=== PATIENT | female | born 1940 | race Caucasian/White ===

== ENCOUNTER 2016-12-02 15:10 | Emergency (ER) | payer OTHER, MEDICARE ==
[~2016-12-02] VITALS: Ht 151.8 cm; Wt 56.7 kg
[~2016-12-02 15:10] MED LIST: MOTRIN 600 MG600 MG PO; PERCOCET 325 MG1 TA2 PO
--- NOTE | 2016-12-02 16:05 | ED UPPER/LOWER EXTREMITY COMPL ---
History of Present Illness General Chief Complaint: Upper Extremity Problem Stated Complaint: RIGHT ARM PAIN Source: patient Exam Limitations: no limitations Allergies Coded Allergies: tetanus and diphtheria toxoids (Intermediate, CELLULITIC RASH 12/02/16) Penicillins (Mild, RASH 12/02/16) latex (Mild, RASH 12/02/16) Uncoded Allergies: CATS DOGS FRAGRENCE GRIMM (LILACS) (12/02/16) Triage Note: TRIAGE: PT TO ER C/C PAIN FROM RT ARM INTO SHOULDER. WOKE UP WITH IT THIS MORNING AND HAS BEEN CONSTANT ALL DAY. STATES "I THINK IT'S FROM THE WEATHER GOING FROM WARM TO COLD." AND "IT'S BEEN NAGGING ME FOR A WHILE BUT NEVER LIKE THIS". DENIES ANY RECENT INJURY OR AGGRAVATING FACTOR. STAETS HAD XRAY IN THE PAST FOR SAME. TOOK EXTRA STRENGTH TYLENOL WITH ONLY SLIGHT RELIEF. WAS ADVISED TO STAY AWAY FROM [facility]VIL OR IBUPROFEN R/T SPINAL FUSION SX 09/08/2016. Triage Nurses Notes Reviewed? yes Onset: Abrupt Duration: week(s):, getting worse, intermittent Timing: recent history No Modifying Factors: none HPI: 76-year-old female comes into emergency room with right shoulder pain. Patient reports that the shoulder pain has been going on intermittently for many months now. Patient has had some limited range of motion. Patient reports that over last 2 days it has gotten significantly worse and she has severe decreased range of motion. Denies any vomiting. Denies any chest pain shortness of breath. Denies any previous surgeries in this right shoulder. Patient reports that she had a low back fusion done back in September 2016. Denies any complications or complaints from that surgery. Denies any other associated symptoms. (SERENITY BENAVIDES,DUKE) Vital Signs & Intake/Output Vital Signs & Intake/Output Vital Signs Date Time Temp Pulse Resp B/P Pulse O2 O2 Flow FiO2 Ox Delivery Rate 12/02 1845 100.4 84 20 122/80 12/02 1519 100.4 88 20 120/82 95 Room Air Reconcile Medications Albuterol Sulfate (Proair Hfa) 90 MCG HFA.AER.AD 2 PUF INH Q4-6 PRN PRN ASTHMA (Reported) Diazepam 5 MG TABLET 1 TAB PO TIDPRN ANXIETY (Reported) Gabapentin 100 MG CAPSULE 1 CAP PO TID DEPRESSION (Reported) Hydrocodone/Acetaminophen (Hydrocodon-Acetaminophen 5-325) 5 MG-325 MG TABLET 1 TAB PO Q4-6 PRN PRN PAIN Ibuprofen 400 MG TABLET 1 TAB PO TID PAIN Ibuprofen (Motrin 600 MG Tab) 600 MG TAB 1 TAB PO Q6P PRN PAIN Methylprednisolone. (Medrol) 4 MG TAB.DS.PK 1 DP PO AD pain 6 on day 1 then reduce by one tablet daily until gone Mometasone Furoate (Asmanex) 110 MCG (30 DOSES) AER.POW.BA 110 MCG PO DAILY UNK (Reported) Montelukast Sodium 10 MG TABLET 1 TAB PO DAILY ASTHMA (Reported) Nitrofurantoin Monohyd/M-Cryst (Nitrofurantoin Bacon-Mcr 100 MG) 100 MG CAPSULE 1 CAP PO BID HEART (Reported) OXYCODONE HCL/ACETAMINOPHEN (Percocet 5-325 MG Tablet) 325 MG/5 MG TAB 1-2 TAB PO Q4-6 PRN PRN PAIN (ISMAEL MOE,MURIEL) Past History Travel History Traveled to [place] past 21 day No Medical History Any Pertinent Medical History? see below for history Neurological: NONE EENT: NONE Cardiovascular: NONE Respiratory: asthma Gastrointestinal: NONE Hepatic: NONE Renal: NONE Musculoskeletal: spinal stenosis, CELLULITIS SPONDYLOLITHESIS Psychiatric: NONE Endocrine: NONE, hypothyroidism Blood Disorders: NONE Cancer(s): NONE PARKING ENFORCER/Reproductive: NONE Surgical History Surgical History: non-contributory Psychosocial History What is your primary language Estonian Tobacco Use: Quit >30 days ago ETOH Use: occasional use Illicit Drug Use: denies illicit drug use Family History Hx Contributory? No (DUKE MATIAS) Review of Systems Review of Systems Constitutional: Reports: see HPI. EENTM: Reports: no symptoms. Respiratory: Reports: no symptoms. Cardiovascular: Reports: no symptoms. Gastrointestinal/Abdominal: Reports: no symptoms. Genitourinary: Reports: no symptoms. Musculoskeletal: Reports: see HPI. Skin: Reports: no symptoms. Neurological/Psychological: Reports: no symptoms. Hematologic/Endocrine: Reports: no symptoms. Immunological: Reports: no symptoms. All Other Systems: Reviewed and Negative (DUKE MATIAS) Physical Exam Physical Exam General Appearance: well developed/nourished, mild distress Head: atraumatic Eyes: Bilateral: normal appearance. Ears, Nose, Throat: normal ENT inspection, hearing grossly normal Neck: normal inspection Cardiovascular/Respiratory: no respiratory distress Back: normal inspection Shoulder Right: SEVERE LIMITED RANGE OF MOTION actively and passively , SWELLING TO THE JOINT, SOME WARMTH, NO ERYTHEMA, PULSES INTACT, DISTAL STRENGTH INTACT, Neurologic/Tendon: normal sensation, normal motor functions, responds to pain Skin: intact, normal color, warm/dry Lymphatic: no anterior cervical jina (DUKE MATIAS) Progress Differential Diagnosis: cellulitis, contusion, dislocation, fracture, septic arthritis, sprain, tendon injury, ROTATOR CUFF TENDINITIS, ADHESIVE CAPSULITIS, (DUKE MATIAS) Plan of Care: Orders Procedure Date/time Status BLOOD CULTURE 12/02 1624 Active WESTERGREN SED RATE 12/02 162 Complete C-REACTIVE PROTEIN 12/02 162 Complete CBC WITHOUT DIFFERENTIAL 12/02 162 Complete URINALYSIS 12/02 161 Complete Durable Medical Equipment 12/02 161 Active Laboratory Tests 12/02/16 1655: C-Reactive Prot, Quant 1.3 H, CBC w Diff NO MAN DIFF REQ, RBC 4.61, MCV 92.9, MCH 31.0, RDW 14.1, MPV 8.1, Gran % 89.4 H, Lymphocytes % 5.7 L, Monocytes % 4.6, Eosinophils % 0.2, Basophils % 0.1, Absolute Granulocytes 15.2 H, Absolute Lymphocytes 1.0 L, Absolute Monocytes 0.8 H, Absolute Eosinophils 0, Absolute Basophils 0, PUBS MCHC 33.4, ESR [place]gergren 16 12/02/16 1610: Urine Color YEL, Urine Clarity CLEAR, Urine pH 6.0, Ur Specific [place] 1.025, Urine Protein NEG, Urine Ketones NEG, Urine Nitrite NEG, Urine Bilirubin NEG, Urine Urobilinogen 0.2, Ur Leukocyte Esterase NEG, Ur Microscopic EXAM NOT REQUIRED, Urine Hemoglobin NEG, Urine Glucose NEG Microbiology 12/02 1657 BLOOD: Blood Culture - RECD 12/02 1654 BLOOD: Blood Culture - RECD Departure Departure Disposition: HOME OR SELF CARE Condition: Stable Clinical Impression Primary Impression: Rotator cuff tendinitis Secondary Impressions: Acute bursitis of right shoulder Referrals: CLEVE MOE,KELVIN PENNY MD,BRYN Worrell (PCP/Family) Additional Instructions: Take Motrin 400 mg 3 times a day for the next 3 days. Take Vicodin as needed for pain. Follow-up with orthopedic doctor provided for physical therapy and possible further evaluation with MRI. Departure Forms: Customer Survey General Discharge Information Prescriptions: Current Visit Scripts Ibuprofen 1 TAB PO TID #12 TAB Hydrocodone/Acetaminophen (Hydrocodon-Acetaminophen 5-325) 1 TAB PO Q4-6 PRN PRN PAIN #20 TAB Methylprednisolone. (Medrol) 1 DP PO AD #1 DP 6 on day 1 then reduce by one tablet daily until gone Comments 12/02/2016 7:20:11 PM Patient was seen by Dr. ramírez. I also consult with Dr. Adams from orthopedic. Symptoms are likely most consistent with adhesive capsulitis/rotator cuff tendinitis as opposed to a septic joint. Low-grade fever here and elevated white count but normal sedimentation rate and only slightly elevated CRP. The case was discussed in detail with Dr. Adams and patient was seen by Dr. Ramírez. Collaboratively it was decided that the patient will follow-up with orthopedic doctor in the office on Monday. Low suspicion for septic joint at this time. Start Medrol Dosepak in conjunction with other medications. Patient understands and agrees with plan of care. No sore throat white count at this time. This will be followed by primary care doctor. Patient understands and agrees with plan of care. ([place]KE MATIAS) PA/UTILITIES ESTIMATOR AND DRAFTER Co-Sign Statement Statement: ED Attending supervision documentation- [X] I saw and evaluated the patient. I have also reviewed all the pertinent lab results and diagnostic results. I agree with the findings and the plan of care as documented in the PA's/UTILITIES ESTIMATOR AND DRAFTER's documentation. [X] I have reviewed the ED Record and agree with the PA's/UTILITIES ESTIMATOR AND DRAFTER's documentation. [] Additions or exceptions (if any) to the PAs/UTILITIES ESTIMATOR AND DRAFTER's note and plan are summarized below: [] (ISMAEL MOE,MURIEL) Procedures Splinting Location: right shoulder Manual Alignment Performed: No Pre-Made Type: shoulder immobilizer Splint Applied By: splint applied by me Pre-Proc Neuro Vasc Exam: normal Post-Proc Neuro Vasc Exam: normal (DUKE MATIAS)
[2016-12-02] MEDS ORDERED: HYDROCODON-ACE1 EAC2 PO (16:10)
[2016-12-02] MEDS ORDERED: IBUPROFEN400 M1 PO (16:10)
[2016-12-02] MEDS ORDERED: NITROFURANTOIN100 M6 PO (16:34)
[2016-12-02] MEDS ORDERED: MONTELUKAST SOD10 M1 PO (16:34)
[2016-12-02] MEDS ORDERED: DIAZEPAM5 M1 PO (16:34)
[2016-12-02] MEDS ORDERED: ASMANEX110 MCG PO (16:34)
[2016-12-02] MEDS ORDERED: GABAPENTIN100 M2 PO (16:35)
[2016-12-02] MEDS ORDERED: PROAIR HFA8.5 GM INH (16:35)
[2016-12-02 17:15] LABS: ABSOLUTE BASOPHIL COUNT 0 /CUMM (0.0-0.2); ABSOLUTE EOSINOPHIL COUNT 0 /CUMM (0.0-0.7); ABSOLUTE GRANULOCYTE CT 15.2 /CUMM (1.4-6.5); ABSOLUTE MONOCYTE COUNT 0.8 /CUMM (0.10-0.60); BASOPHIL % 0.1 % (0.0-2.0); EOSINOPHIL % 0.2 % (0-5); HEMATOCRIT 42.8 % (37-47); MEAN CORPUSCULAR HGB CONC 33.4 G/DL (33.0-37.0); MEAN CORPUSCULAR VOLUME 92.9 FL (81.0-99.0); MEAN PLATELET VOLUME 8.1 FL (7.4-10.4); PLATELET COUNT 292 /CUMM (130-400); RBC DISTRIBUTION WIDTH 14.1 % (11.5-14.5); RED BLOOD CELL CT 4.61 /CUMM (4.20-5.40)
[2016-12-02 17:17] LABS: GRANULOCYTE % 89.4 % (42.2-75.2)
[2016-12-02] MEDS ORDERED: MEDROL4 M2 PO (18:40)
[2016-12-02 18:45] VITALS: BP 122/80
== END 2016-12-02 19:15 ==
LOC: ERH 15:10
PROVIDERS: Emergency Medicine
DX: M75.51 Bursitis of right shoulder (principal); Z79.01 Long term (current) use of anticoagulants
CPT/HCPCS: 81003; 87040